=== PATIENT | male | born 1950 | race African-American/Black ===

== ENCOUNTER 2018-10-15 15:06 | Inpatient (IN) | payer OTHER ==
[2018-10-15 17:09] VITALS: BMI 21.8
--- NOTE | 2018-10-15 22:16 | HP ---
CIWA Score Nausea/Vomitin Muscle Tremors: None Anxiety: 0-No Anxiety, at Ease Agitation: 3 Paroxysmal Sweats: 3 Orientation: 1-Uncertain about Date Tacttile Disturbances: 0-None Auditory Disturbances: 0-None Visual Disturbances: 0-None Headache: 3-Moderate CIWA-Ar Total Score: 12 - Admission Criteria OASAS Guidelines: Admission for Medically Managed Detox: Requires at least one of the followin. CIWA greater than 12 2. Seizures within the past 24 hours 3. Delirium tremens within the past 24 hours 4. Hallucinations within the past 24 hours 5. Acute intervention needed for co occurring medical disorder 6. Acute intervention needed for co occurring psychiatric disorder 7. Severe withdrawal that cannot be handled at a lower level of care (continued vomiting, continued diarrhea, abnormal vital signs) requiring intravenous medication and/or fluids 8. Patient presents the following: CIWA greater than 12, Acute intervention needed for co-occurring med or psych disorder Admission Criteria Met: Admission criteria met Admission ROS S - [facility] Chief Complaint: c/o worsening withdrawal sx's. seeking detox txment from alcohol Allergies/Adverse Reactions: Allergies Allergy/AdvReac Type Severity Reaction Status Date / Time No Known Allergies Allergy Verified 10/15/18 18:22 History of Present Illness: 68 Y.O. MALE KNOWN TO US HERE FOR DETOX FROM ALCOHOL. HE PRESENTED EARLIER TODAY WITH INTOXICATION NOW C/O WORSENING WITHDRAWAL SX'S/ CIWA 12. REPEAT NADJA- .272 FROM 0.370. LAST HERE 04/2016. DENIES ANY INPATIENT TXMENT SINCE. POOR HISTORIAN ( DOES NOT WANT TO SHARE HX) HE STILL IS INTOXICATED BUT IS A/O X3 AND IRRITABLE. REPORTS LONGEST CLEAN TIME 2 YEARS FROM 1999 TO 2001. DENIES HX/ O SI/HI/ AVH/ SEIZURE D/O. LIVES ALONE, EMPLOYED, DENIES LEGALS. PMHX- DM, HTN, .... POOR HISTORIAN' i GOT ALL KIND OF SHIT" PSYCH- DENIES MEDS- NON COMPLAINT Exam Limitations: Intoxication - Ebola screening Have you traveled outside of the country in the last 21 days: No Have you had contact with anyone from an Ebola affected area: No Have you been sick,other than usual withdrawal symptoms: No - Review of Systems Constitutional: Loss of Appetite, Changes in sleep EENT: reports: Dental Problems (UPPER DENTURES) Respiratory: reports: Shortness of Breath Cardiac: reports: No Symptoms Reported GI: reports: Nausea, Poor Appetite, Poor Fluid Intake, Vomiting, Abdominal cramping : reports: No Symptoms Reported Musculoskeletal: reports: Back Pain Integumentary: reports: No Symptoms Reported Neuro: reports: No Symptoms reported Endocrine: reports: Other (HX/O DM) Hematology: reports: No Symptoms Reported Psychiatric: reports: Agitated (IRRITABLE), Depressed Other Systems: Reviewed and Negative Patient History - Patient Medical History Hx Anemia: No Hx Asthma: No Hx Chronic Obstructive Pulmonary Disease (COPD): No Hx Cancer: No Hx Cardiac Disorders: No Hx Congestive Heart Failure: No Hx Hypertension: Yes (NON COMPLIANT WITH MEDS.) Hx Hypercholesterolemia: No Hx Pacemaker: No HX Cerebrovascular Accident: No Hx Seizures: No Hx Dementia: No Hx Diabetes: Yes Hx Gastrointestinal Disorders: No Hx Liver Disease: Yes (HEP C) Hx Genitourinary Disorders: No Hx Sexually Transmitted Disorders: No Hx Renal Disease (ESRD): No Hx Thyroid Disease: No Hx Human Immunodeficiency Virus (HIV): No Hx Hepatitis C: Yes (DX 2010 NO TXMENT) Hx Depression: Yes Hx Suicide Attempt: No Hx Bipolar Disorder: No Hx Schizophrenia: No - Patient Surgical History Past Surgical History: Yes Hx Neurologic Surgery: No Hx Cataract Extraction: No Hx Cardiac Surgery: No Hx Lung Surgery: No Hx Breast Surgery: No Hx Breast Biopsy: No Hx Abdominal Surgery: No Hx Appendectomy: No Hx Cholecystectomy: No Hx Genitourinary Surgery: No Hx Section: No Hx Orthopedic Surgery: Yes (right ankle) Hx Hysterectomy: No (N/A) Anesthesia Reaction: No - PPD History Previous Implant?: Yes Documented Results: Negative w/proof Implanted On Prior [facility] Admission?: Yes Date: 11/21/15 Results: 0 MM PPD to be Administered?: Yes - Smoking Cessation Smoking history: Current every day smoker Have you smoked in the past 12 months: Yes Aproximately how many cigarettes per day: 10 Cigars Per Day: 0 Hx Chewing Tobacco Use: No Initiated information on smoking cessation: Yes 'Breaking Loose' booklet given: 10/15/18 - Substance & Tx. History Hx Alcohol Use: Yes Hx Substance Use: No Substance Use Type: Alcohol Hx Substance Use Treatment: Yes ([facility]) - Substances Abused Alcohol Route: Oral Frequency: Daily Amount used: liquor- 3 pints, beer- 1 case Age of first use: 16 Date of Last Use: 10/15/18 Family Disease History - Family Disease History Family Disease History: Respiratory: Sister (ASTHMA ), Other: Father ( ESTRANGED) Admission Physical Exam [facility] - Vital Signs Vital Signs: Vital Signs - 24 hr 10/15/18 17:04 Temperature 98.9 F Pulse Rate 80 Respiratory 18 Rate Blood Pressure 156/90 - Physical General Appearance: Yes: Appropriately Dressed, Intoxicated, Irritable HEENTM: Yes: EOMI, Normocephalic, Normal Voice, ISAIAS, Pharynx Normal, Other ( DENTURES TOP) Respiratory: Yes: Chest Non-Tender, Lungs Clear, Normal Breath Sounds, No Respiratory Distress, No Accessory Muscle Use Neck: Yes: No masses,lesions,Nodules, Supple, Trachea in good position Breast: Yes: Breast Exam Deferred Cardiology: Yes: Regular Rhythm, Regular Rate, S1, S2 Abdominal: Yes: Non Tender, Soft, Increased Bowel Sounds Genitourinary: Yes: Other (NO C/O OFFERED) Back: Yes: Normal Inspection Musculoskeletal: Yes: full range of Motion, Gait Steady Extremities: Yes: Normal Range of Motion, Non-Tender Neurological: Yes: Fully Oriented, Alert, Motor Strength 5/5 Integumentary: Yes: Dry, Warm Lymphatic: Yes: Within Normal Limits - Diagnostic (1) Diabetes Current Visit: Yes Status: Acute (2) History of hepatitis C Current Visit: Yes Status: Acute (3) Alcohol dependence with uncomplicated intoxication Current Visit: Yes Status: Acute (4) Non compliance w medication regimen Current Visit: Yes Status: Acute (5) Poor historian Current Visit: Yes Status: Acute (6) Gastroesophageal reflux disease Current Visit: No Status: Active (7) Drug-induced mood disorder Current Visit: No Status: Acute (8) Alcohol dependence with uncomplicated withdrawal Current Visit: No Status: Chronic (9) Essential hypertension Current Visit: No Status: Chronic (10) Nicotine dependence Current Visit: No Status: Chronic Qualifiers: Nicotine product type: cigarettes Substance use status: uncomplicated Qualified Code(s): F17.210 - Nicotine dependence, cigarettes, uncomplicated Cleared for Admission [facility] - Detox or Rehab [facility] Level of Care: Medically Managed Detox Regimen/Protocol: Librium Claeared for Rehab Admission: No S Breath Alcohol Content Breath Alcohol Content: 0.370 Urine Drug Screen - Results Drug Screen Negative: Yes
[2018-10-15] MEDS ORDERED: P-EPHED 60MG/TRIPROLIDI 2.5MG TABLET PO PRN (22:20)
[2018-10-15] MEDS ORDERED: ACETAMINOPHEN 325 MG TABLET (FP) PO PRN (22:20)
[2018-10-15] MEDS ORDERED: MAG HYDROX/AL HYDROX/SIMETH 30 ML UNIT-DOSE CUP PO PRN (22:20)
[2018-10-15] MEDS ORDERED: chlordiazePOXIDE HCL 25 MG CAPSULE PO PRN (22:20)
[2018-10-15] MEDS ORDERED: MAGNESIUM CITRATE 300 ML BOTTLE PO PRN (22:20)
[2018-10-15] MEDS ORDERED: guaiFENesin/D-METHORPHAN HB 10 ML UNIT-DOSE CUPS PO PRN (22:20)
[2018-10-15] MEDS ORDERED: MAGNESIUM HYDROX 2400MG/30ML ORAL SUSPENSION 30 ML CUP PO PRN (22:20)
[2018-10-15] MEDS ORDERED: NICOTINE POLACRILEX 2 MG GUM BC PRN (22:20)
[2018-10-15] MEDS ORDERED: LOPERAMIDE HCL 2 MG CAPSULE PO PRN (22:20)
[2018-10-15] MEDS ORDERED: hydrOXYzine PAMOATE 50 MG CAPSULE (FP) PO PRN (22:20)
[2018-10-15] MEDS ORDERED: IBUPROFEN 400 MG TABLET (FP) PO PRN (22:20)
[2018-10-15] MEDS ORDERED: MENTHOL/PHENOL 1 EACH UD MM PRN (22:20)
[2018-10-15] MEDS ORDERED: cloNIDine HCL 0.1 MG TABLET PO ONE (22:20)
[2018-10-15] MEDS: chlordiazePOXIDE HCL 25 MG CAPSULE PO SCH (23:13)
[2018-10-16] MEDS: chlordiazePOXIDE HCL 25 MG CAPSULE PO SCH ×4 (05:18→22:06)
[2018-10-16] MEDS: amLODIPine BESYLATE 5 MG TABLET (FP) PO SCH (10:13)
[2018-10-16] MEDS: PRENATAL VITAMINS W/ FOLIC ACID TABLET (FP) PO SCH (10:13)
[2018-10-16] MEDS: NICOTINE 14 MG/24 HOURS TOPICAL PATCH TD SCH (10:14)
[2018-10-16 10:21] LABS: HEMATOCRIT 42.6 % (35.4-49); HEMOGLOBIN 13.3 GM/dL (11.7-16.9); MCH 27.3 pg (25.7-33.7); MCHC 31.3 g/dl (32.0-35.9); MEAN CELL VOLUME 87.3 fl (80-96); PLATELET COUNT 146 K/MM3 (134-434); RBC 4.89 M/mm3 (4.00-5.60); RDW 16.3 % (11.9-15.9)
[2018-10-16 10:34] LABS: ALBUMIN 3.3 g/dl (3.4-5.0); ALK PHOS 54 U/L (45-117); ANION GAP 10 MMOL/L (8-16); BILIRUBIN,TOTAL 0.4 mg/dL (0.2-1); BLOOD UREA NITROGEN 11 mg/dL (7-18); CALCIUM 8.3 mg/dL (8.5-10.1); CHLORIDE 107 mmol/L (98-107); CO2 26 mmol/L (21-32); CREATININE 0.9 mg/dL (0.55-1.3); GLUCOSE,RANDOM 109 mg/dL (74-106); POTASSIUM 3.9 mmol/L (3.5-5.1); SGOT/AST 55 U/L (15-37); SGPT/ALT 43 U/L (13-61); SODIUM 143 mmol/L (136-145)
--- NOTE | 2018-10-16 13:15 | PN ---
S CIWA - CIWA Score Nausea/Vomitin-No Nausea/No Vomiting Muscle Tremors: 3 Anxiety: 4-Mod. Anxious/Guarded Agitation: 3 Paroxysmal Sweats: 2 Orientation: 0-Oriented Tacttile Disturbances: 0-None Auditory Disturbances: 0-None Visual Disturbances: 0-None Headache: 3-Moderate CIWA-Ar Total Score: 15 BHS Progress Note (SOAP) Subjective: PATIENT C/O FEELING TIRED, ANXIETY, RESTLESSNESS, SWEATING AND SHAKES. Objective: 10/16/18 13:13 Vital Signs Temperature 97.5 F L 10/16/18 09:26 Pulse Rate 72 10/16/18 11:00 Respiratory Rate 18 10/16/18 11:00 Blood Pressure 128/74 10/16/18 09:26 O2 Sat by Pulse Oximetry (%) Laboratory Tests 10/16/18 10/16/18 10/16/18 06:11 07:00 07:00 WBC 5.0 RBC 4.89 Hgb 13.3 Hct 42.6 MCV 87.3 MCH 27.3 MCHC 31.3 L RDW 16.3 H Plt Count 146 D MPV 9.0 Sodium 143 Potassium 3.9 Chloride 107 Carbon Dioxide 26 Anion Gap 10 BUN 11 Creatinine 0.9 Creat Clearance w eGFR > 60 POC Glucometer 132 Random Glucose 109 H Calcium 8.3 L Total Bilirubin 0.4 AST 55 H ALT 43 Alkaline Phosphatase 54 Total Protein 7.0 Albumin 3.3 L RPR Titer 10/16/18 07:00 WBC RBC Hgb Hct MCV MCH MCHC RDW Plt Count MPV Sodium Potassium Chloride Carbon Dioxide Anion Gap BUN Creatinine Creat Clearance w eGFR POC Glucometer Random Glucose Calcium Total Bilirubin AST ALT Alkaline Phosphatase Total Protein Albumin RPR Titer Nonreactive PE: ALERT AND ORIENTED X 3 SKIN WARM, MILD MOISTURE TO FOREHEAD CAR S1S2 RESP CTA BL EXT AMB AD MILLI, +MILD TREMORS +IRRITABLE Assessment: 10/16/18 13:14 WITHDRAWAL SX Plan: CONTINUE DETOX ENCOURAGE ORAL FLUIDS CONTINUE TO MONITOR CLINICALLY
[2018-10-16 15:36] LABS: URINE APPEARANCE CLEAR; URINE BILIRUBIN NEGATIVE (<2.0 mg/dL); URINE COLOR STRAW; URINE GLUCOSE (UA) NEGATIVE (NEGATIVE); URINE KETONE NEGATIVE (NEGATIVE); URINE LEUK ESTERASE NEGATIVE (NEGATIVE); URINE NITRITE NEGATIVE (NEGATIVE); URINE PROTEIN NEGATIVE (NEGATIVE); URINE UROBILINOGEN NEGATIVE mg/dL (0.2-1.0)
[2018-10-16] MEDS: THIAMINE HCL 100 MG TABLET (FP) PO SCH (22:06)
[2018-10-16] MEDS: MELATONIN 5 MG TABLETS PO PRN (22:06)
[2018-10-17] MEDS: chlordiazePOXIDE HCL 25 MG CAPSULE PO SCH ×3 (05:10→17:16)
[2018-10-17] MEDS: PRENATAL VITAMINS W/ FOLIC ACID TABLET (FP) PO SCH (10:05)
[2018-10-17] MEDS: amLODIPine BESYLATE 5 MG TABLET (FP) PO SCH (10:05)
[2018-10-17] MEDS: NICOTINE 14 MG/24 HOURS TOPICAL PATCH TD SCH (10:07)
--- NOTE | 2018-10-17 11:47 | PN ---
[facility] CIWA - CIWA Score Nausea/Vomitin-Mild Nausea/No Vomiting Muscle Tremors: 3 Anxiety: 1-Mildly Anxious Agitation: 2 Paroxysmal Sweats: 1-Minimal Palms Moist Orientation: 1-Uncertain about Date Tacttile Disturbances: 0-None Auditory Disturbances: 0-None Visual Disturbances: 0-None Headache: 2-Mild CIWA-Ar Total Score: 11 S Progress Note (SOAP) Subjective: gi distress tremor sweat restlessness anxiousness Objective: 10/17/18 11:47 Vital Signs Temperature 97 F L 10/17/18 09:06 Pulse Rate 63 10/17/18 09:06 Respiratory Rate 20 10/17/18 09:06 Blood Pressure 137/77 10/17/18 09:06 O2 Sat by Pulse Oximetry (%) Laboratory Last Values WBC 5.0 K/mm3 (4.0-10.0) 10/16/18 07:00 RBC 4.89 M/mm3 (4.00-5.60) 10/16/18 07:00 Hgb 13.3 GM/dL (11.7-16.9) 10/16/18 07:00 Hct 42.6 % (35.4-49) 10/16/18 07:00 MCV 87.3 fl (80-96) 10/16/18 07:00 MCH 27.3 pg (25.7-33.7) 10/16/18 07:00 MCHC 31.3 g/dl (32.0-35.9) L 10/16/18 07:00 RDW 16.3 % (11.9-15.9) H 10/16/18 07:00 Plt Count 146 K/MM3 (134-434) D 10/16/18 07:00 MPV 9.0 fl (7.5-11.1) 10/16/18 07:00 Sodium 143 mmol/L (136-145) 10/16/18 07:00 Potassium 3.9 mmol/L (3.5-5.1) 10/16/18 07:00 Chloride 107 mmol/L (98-107) 10/16/18 07:00 Carbon Dioxide 26 mmol/L (21-32) 10/16/18 07:00 Anion Gap 10 MMOL/L (8-16) 10/16/18 07:00 BUN 11 mg/dL (7-18) 10/16/18 07:00 Creatinine 0.9 mg/dL (0.55-1.3) 10/16/18 07:00 Creat Clearance w eGFR > 60 (>60) 10/16/18 07:00 POC Glucometer 115 UNITS (80-120) 10/17/18 05:09 Random Glucose 109 mg/dL (74-106) H 10/16/18 07:00 Calcium 8.3 mg/dL (8.5-10.1) L 10/16/18 07:00 Total Bilirubin 0.4 mg/dL (0.2-1) 10/16/18 07:00 AST 55 U/L (15-37) H 10/16/18 07:00 ALT 43 U/L (13-61) 10/16/18 07:00 Alkaline Phosphatase 54 U/L (45-117) 10/16/18 07:00 Total Protein 7.0 g/dl (6.4-8.2) 10/16/18 07:00 Albumin 3.3 g/dl (3.4-5.0) L 10/16/18 07:00 Urine Color Straw 10/15/18 11:45 Urine Appearance Clear 10/15/18 11:45 Urine pH 6.0 (5.0-8.0) 10/15/18 11:45 Ur Specific [place] 1.003 (1.010-1.035) L 10/15/18 11:45 Urine Protein Negative (NEGATIVE) 10/15/18 11:45 Urine Glucose (UA) Negative (NEGATIVE) 10/15/18 11:45 Urine Ketones Negative (NEGATIVE) 10/15/18 11:45 Urine Blood Negative (NEGATIVE) 10/15/18 11:45 Urine Nitrite Negative (NEGATIVE) 10/15/18 11:45 Urine Bilirubin Negative (<2.0 mg/dL) 10/15/18 11:45 Urine Urobilinogen Negative mg/dL (0.2-1.0) 10/15/18 11:45 Ur Leukocyte Esterase Negative (NEGATIVE) 10/15/18 11:45 RPR Titer Nonreactive (NONREACTIVE) 10/16/18 07:00 lab noted Assessment: 10/17/18 11:48 withdrawal sx Plan: continue detox
[2018-10-17] MEDS: THIAMINE HCL 100 MG TABLET (FP) PO SCH (22:09)
[2018-10-17] MEDS: chlordiazePOXIDE 5 MG CAPSULE PO SCH (22:09)
[2018-10-17] MEDS: MELATONIN 5 MG TABLETS PO PRN (22:09)
[2018-10-18] MEDS: chlordiazePOXIDE 5 MG CAPSULE PO SCH ×2 (05:31→10:10)
[2018-10-18] MEDS: PRENATAL VITAMINS W/ FOLIC ACID TABLET (FP) PO SCH (10:10)
[2018-10-18] MEDS: amLODIPine BESYLATE 5 MG TABLET (FP) PO SCH (10:10)
[2018-10-18] MEDS: NICOTINE 14 MG/24 HOURS TOPICAL PATCH TD SCH (10:11)
[2018-10-18 13:08] VITALS: BP 115/62; PULSE 65; TEMP 97.9
--- NOTE | 2018-10-18 16:06 | DS ---
[facility] Detox Discharge Summary Admission Date: 10/15/18 Discharge Date: 10/18/18 - History Present History: Alcohol Dependence Additional Comments: 68 years old male admitted on 10/15/18 for alcohol withdrawal stabilization preferred to begin rehab today that mild alcohol withdrawal can be managed encourage the patient aftercare as per counselor arranged - Physical Exam Results Vital Signs: Vital Signs Temperature 97.9 F 10/18/18 13:08 Pulse Rate 65 10/18/18 13:08 Respiratory Rate 17 10/18/18 13:08 Blood Pressure 115/62 10/18/18 13:08 O2 Sat by Pulse Oximetry (%) Pertinent Admission Physical Exam Findings: alcohol withdrawal sx Laboratory Last Values WBC 5.0 K/mm3 (4.0-10.0) 10/16/18 07:00 RBC 4.89 M/mm3 (4.00-5.60) 10/16/18 07:00 Hgb 13.3 GM/dL (11.7-16.9) 10/16/18 07:00 Hct 42.6 % (35.4-49) 10/16/18 07:00 MCV 87.3 fl (80-96) 10/16/18 07:00 MCH 27.3 pg (25.7-33.7) 10/16/18 07:00 MCHC 31.3 g/dl (32.0-35.9) L 10/16/18 07:00 RDW 16.3 % (11.9-15.9) H 10/16/18 07:00 Plt Count 146 K/MM3 (134-434) D 10/16/18 07:00 MPV 9.0 fl (7.5-11.1) 10/16/18 07:00 Sodium 143 mmol/L (136-145) 10/16/18 07:00 Potassium 3.9 mmol/L (3.5-5.1) 10/16/18 07:00 Chloride 107 mmol/L (98-107) 10/16/18 07:00 Carbon Dioxide 26 mmol/L (21-32) 10/16/18 07:00 Anion Gap 10 MMOL/L (8-16) 10/16/18 07:00 BUN 11 mg/dL (7-18) 10/16/18 07:00 Creatinine 0.9 mg/dL (0.55-1.3) 10/16/18 07:00 Creat Clearance w eGFR > 60 (>60) 10/16/18 07:00 POC Glucometer 129 UNITS (80-120) 10/18/18 05:35 Random Glucose 109 mg/dL (74-106) H 10/16/18 07:00 Calcium 8.3 mg/dL (8.5-10.1) L 10/16/18 07:00 Total Bilirubin 0.4 mg/dL (0.2-1) 10/16/18 07:00 AST 55 U/L (15-37) H 10/16/18 07:00 ALT 43 U/L (13-61) 10/16/18 07:00 Alkaline Phosphatase 54 U/L (45-117) 10/16/18 07:00 Total Protein 7.0 g/dl (6.4-8.2) 10/16/18 07:00 Albumin 3.3 g/dl (3.4-5.0) L 10/16/18 07:00 Urine Color Straw 10/15/18 11:45 Urine Appearance Clear 10/15/18 11:45 Urine pH 6.0 (5.0-8.0) 10/15/18 11:45 Ur Specific [place] 1.003 (1.010-1.035) L 10/15/18 11:45 Urine Protein Negative (NEGATIVE) 10/15/18 11:45 Urine Glucose (UA) Negative (NEGATIVE) 10/15/18 11:45 Urine Ketones Negative (NEGATIVE) 10/15/18 11:45 Urine Blood Negative (NEGATIVE) 10/15/18 11:45 Urine Nitrite Negative (NEGATIVE) 10/15/18 11:45 Urine Bilirubin Negative (<2.0 mg/dL) 10/15/18 11:45 Urine Urobilinogen Negative mg/dL (0.2-1.0) 10/15/18 11:45 Ur Leukocyte Esterase Negative (NEGATIVE) 10/15/18 11:45 RPR Titer Nonreactive (NONREACTIVE) 10/16/18 07:00 lab noted - Treatment Hospital Course: Detox Protocol Followed, Detoxed Safely, Responded well, Discharged Condition Good, Rehab Referral Accepted Patient has Accepted a Rehab Referral to: as per counselor arrangement - Medication Discharge Medications: Ambulatory Orders Amlodipine Besylate [Norvasc -] 5 mg PO DAILY #30 tablet 02/15/16 - Diagnosis (1) Weight decreased Status: Active (2) Alcohol dependence with uncomplicated intoxication Status: Acute (3) History of hepatitis C Status: Chronic (4) Essential hypertension Status: Chronic (5) Nicotine dependence Status: Acute Qualifiers: Nicotine product type: cigarettes Substance use status: in withdrawal Qualified Code(s): F17.213 - Nicotine dependence, cigarettes, with withdrawal (6) Drug-induced mood disorder Status: Suspected - AMA Did Patient Leave Against Medical Advice: No
[2018-10-18] MEDS ORDERED: chlordiazePOXIDE HCL 10 MG CAPSULE PO SCH (23:00)
== END 2018-10-18 14:25 | disposition home or self-care (01) | DRG 897 ==
LOC: YASAS 15:06 → Y3N 20:58
PROC: HZ2ZZZZ Detoxification Services for Substance Abuse Treatment (ICD-10-PCS; principal; 2018-10-15)
DX: F10.230 Alcohol dependence with withdrawal, uncomplicated (principal); F10.220 Alcohol dependence with intoxication, uncomplicated; F17.213 Nicotine dependence, cigarettes, with withdrawal; F19.24 Other psychoactive substance dependence with psychoactive substance-induced mood disorder; I10 Essential (primary) hypertension; B18.2 Chronic viral hepatitis C; E11.9 Type 2 diabetes mellitus without complications; K21.9 Gastro-esophageal reflux disease without esophagitis; Z91.14 Patient's other noncompliance with medication regimen
CPT/HCPCS: 36415; 80053; 81003; 82962; 85027; 86593; J0735

== ENCOUNTER 2019-05-16 10:58 | Inpatient (IN) | payer OTHER ==
[2019-05-16 11:43] VITALS: BMI 19.5
--- NOTE | 2019-05-16 12:34 | HP ---
CIWA Score Nausea/Vomitin-No Nausea/No Vomiting Muscle Tremors: 4-Moderate,w/Arms Extend Anxiety: 2 Agitation: 1-Slight > Activity Paroxysmal Sweats: 4-Forehead w/Sweat Beads Orientation: 2-Disoriented Date<2 days Tacttile Disturbances: 1-Very Mild Itch/Numbness Auditory Disturbances: 0-None Visual Disturbances: 0-None Headache: 4-Moderately Severe (appropriate for detox admission) CIWA-Ar Total Score: 18 - Admission Criteria OASAS Guidelines: Admission for Medically Managed Detox: Requires at least one of the followin. CIWA greater than 12 2. Seizures within the past 24 hours 3. Delirium tremens within the past 24 hours 4. Hallucinations within the past 24 hours 5. Acute intervention needed for co occurring medical disorder 6. Acute intervention needed for co occurring psychiatric disorder 7. Severe withdrawal that cannot be handled at a lower level of care (continued vomiting, continued diarrhea, abnormal vital signs) requiring intravenous medication and/or fluids 8. Admission ROS [facility] - HPI Chief Complaint: "I'm here for alcohol treatment." Allergies/Adverse Reactions: Allergies Allergy/AdvReac Type Severity Reaction Status Date / Time No Known Allergies Allergy Verified 05/16/19 11:33 History of Present Illness: Patient is 68 year old black male with alcohol dependence last admitted to [facility] 6 months ago. Patient completed detox. Patient is using 10 beers 16 oz cans per day, last drank 1 day ago because he ran out of money. Patient has had black outs from over drinking. Patient denies seizures. Patient sometimes infrequently uses crack/cocaine. Patient sometimes uses benzodiazepines but infrequently. Patient smokes 3/4 pack of cigg per day. PMHx: HTN, DM, HCV Disease untreated Psurgical Hx; Broken left ankle long ago. Patient has no legal issues pending. Patient was arrested in past for being drunk. Patient has no support systems from family. Patient is homeless now, but not in [facility] system. Exam Limitations: No Limitations - Ebola screening Have you traveled outside of the country in the last 21 days: No Have you had contact with anyone from an Ebola affected area: No Have you been sick,other than usual withdrawal symptoms: No Do you have a fever: No - Review of Systems Constitutional: Chills EENT: reports: No Symptoms Reported Respiratory: reports: No Symptoms reported, Cough Cardiac: reports: Lightheadedness GI: reports: Nausea, Abdominal cramping : reports: No Symptoms Reported Musculoskeletal: reports: Muscle Pain Integumentary: reports: No Symptoms Reported Neuro: reports: Headache, Tingling, Tremors Endocrine: reports: No Symptoms Reported Hematology: reports: No Symptoms Reported Psychiatric: reports: No Sypmtoms Reported, Judgement Intact, Mood/Affect Appropiate, Orientated x3 Other Systems: Reviewed and Negative Patient History - Patient Medical History Hx Anemia: No Hx Asthma: No Hx Chronic Obstructive Pulmonary Disease (COPD): No Hx Cancer: No Hx Cardiac Disorders: No Hx Congestive Heart Failure: No Hx Hypertension: Yes (NON COMPLIANT WITH MEDS.) Hx Hypercholesterolemia: No Hx Pacemaker: No HX Cerebrovascular Accident: No Hx Seizures: No Hx Dementia: No Hx Diabetes: Yes (no medications) Hx Gastrointestinal Disorders: No Hx Liver Disease: Yes (HEP C) Hx Genitourinary Disorders: No Hx Sexually Transmitted Disorders: No Hx Renal Disease (ESRD): No Hx Thyroid Disease: No Hx Human Immunodeficiency Virus (HIV): No Hx Hepatitis C: Yes (DX 2010 NO TXMENT) Hx Depression: No Hx Suicide Attempt: No Hx Bipolar Disorder: No Hx Schizophrenia: No - Patient Surgical History Past Surgical History: Yes Hx Neurologic Surgery: No Hx Cataract Extraction: No Hx Cardiac Surgery: No Hx Lung Surgery: No Hx Breast Surgery: No Hx Breast Biopsy: No Hx Abdominal Surgery: No Hx Appendectomy: No Hx Cholecystectomy: No Hx Genitourinary Surgery: No Hx Section: No Hx Orthopedic Surgery: Yes (right ankle) Hx Hysterectomy: No (N/A) Anesthesia Reaction: No - PPD History Previous Implant?: Yes Documented Results: Negative w/o proof Implanted On Prior [facility] Admission?: Yes Date: 10/17/18 Results: 0 MM PPD to be Administered?: Yes - Reproductive History Patient is a Female of Child Bearing Age (11 -55 yrs old): No - Smoking Cessation Smoking history: Current every day smoker Have you smoked in the past 12 months: Yes Aproximately how many cigarettes per day: 10 Cigars Per Day: 0 Hx Chewing Tobacco Use: No Initiated information on smoking cessation: Yes 'Breaking Loose' booklet given: 05/16/19 - Substance & Tx. History Hx Alcohol Use: Yes (10 beers per day) Hx Substance Use: Yes (occasional cocaine and benzodiazepines) Substance Use Type: Alcohol, Cocaine Hx Substance Use Treatment: Yes (10/2018 detox here) - Substances abused Alcohol Substance route: Oral Frequency: Daily Amount used: 12 beers 16oz can Age of first use: 15 Date of last use: 05/15/19 Family Disease History - Family Disease History Family Disease History: Respiratory: Sister (ASTHMA ), Other: Father ( ESTRANGED) Admission Physical Exam [facility] - Vital Signs Vital Signs: Vital Signs - 24 hr 05/16/19 11:33 Temperature 98.1 F Pulse Rate 102 H Respiratory 18 Rate Blood Pressure 191/111 H - Physical General Appearance: Yes: Moderate Distress, Sweating HEENTM: Yes: EOMI, Normal ENT Inspection, Normocephalic, ISAIAS, Pharynx Normal, Other (edentulous) Respiratory: Yes: Chest Non-Tender, Lungs Clear, Normal Breath Sounds, No Respiratory Distress, No Accessory Muscle Use Neck: Yes: Within Normal Limits, No masses,lesions,Nodules, Trachea in good position Breast: Yes: Within Normal Limits Cardiology: Yes: S1, S2, Tachycardia, Irregularly Irregular Abdominal: Yes: Normal Bowel Sounds, Flat, Increased Bowel Sounds Genitourinary: Yes: Within Normal Limits Back: Yes: Normal Inspection Musculoskeletal: Yes: full range of Motion, Gait Steady Extremities: Yes: Normal Capillary Refill, Normal Inspection, Normal Range of Motion, Non-Tender Neurological: Yes: community engagement leader II-XII NML intact, Fully Oriented, Alert, Motor Strength 5/5, Normal Mood/Affect, Normal Response Integumentary: Yes: Normal Color, Warm Lymphatic: Yes: Within Normal Limits - Diagnostic (1) Gastroesophageal reflux disease Current Visit: Yes Status: Active (2) Weight decreased Current Visit: Yes Status: Active (3) Diabetes Current Visit: Yes Status: Acute (4) Nicotine dependence Current Visit: Yes Status: Acute Qualifiers: Nicotine product type: cigarettes Substance use status: in withdrawal Qualified Code(s): F17.213 - Nicotine dependence, cigarettes, with withdrawal (5) Alcohol dependence with uncomplicated withdrawal Current Visit: Yes Status: Chronic (6) Essential hypertension Current Visit: Yes Status: Chronic (7) History of hepatitis C Current Visit: Yes Status: Chronic Cleared for Admission [facility] - Detox or Rehab [facility] Level of Care: Medically Managed Detox Regimen/Protocol: Librium Screened but not Admitted - Documentation of Visit Screened but not Admitted: No Breathalyzer - Breathalyzer Breathalyzer: 0 (last drank one day ago because no money) Vital Signs - Vital Signs Vital signs refused: No Temperature: 98.1 F Temperature source: Oral Pulse Rate: 102 Respiratory Rate: 18 Blood Pressure: 190/111 BP Location: Left Arm Blood Pressure position: Sitting - Height Height: 6 ft 2 in - Weight Weight: 152 lb Weight measurement method: Standing scale - BMI Body Mass Index (BMI): 19.5 - Bowel Function Bowel Movement: Yes Urine Drug Screen - Control Is test valid?: Yes - Results Drug screen NEGATIVE: No Urine drug screen results: BZO-Benzodiazepines Inpatient Rehab Admission - Rehab Decision to Admit Inpatient rehab admission?: No
[2019-05-16] MEDS ORDERED: chlordiazePOXIDE HCL 25 MG CAPSULE PO PRN (12:47)
[2019-05-16] MEDS ORDERED: MENTHOL/PHENOL 1 EACH UD MM PRN (12:47)
[2019-05-16] MEDS ORDERED: hydrOXYzine HCL 25 MG TABLET (FP) PO PRN (12:47)
[2019-05-16] MEDS ORDERED: ACETAMINOPHEN 325 MG TABLET (FP) PO PRN ×2 (12:47)
[2019-05-16] MEDS ORDERED: MAGNESIUM CITRATE 300 ML BOTTLE PO PRN (12:47)
[2019-05-16] MEDS ORDERED: MAGNESIUM HYDROX 2400MG/30ML ORAL SUSPENSION 30 ML CUP PO PRN (12:47)
[2019-05-16] MEDS ORDERED: MAG HYDROX/AL HYDROX/SIMETH 30 ML UNIT-DOSE CUP PO PRN (12:47)
[2019-05-16] MEDS ORDERED: METHOCARBAMOL 500 MG TABLET PO PRN (12:47)
[2019-05-16] MEDS ORDERED: BISMUTH SUBSALICYLATE 262 MG/15 ML BTL PO PRN (12:47)
[2019-05-16] MEDS: amLODIPine BESYLATE 5 MG TABLET (FP) PO SCH (15:14)
[2019-05-16] MEDS: LIDOCAINE 5% TOPICAL PATCH TP SCH (15:17)
[2019-05-16 16:44] LABS: HEMATOCRIT 44.3 % (35.4-49); HEMOGLOBIN 14.3 GM/dL (11.7-16.9); MCH 28.1 pg (25.7-33.7); MCHC 32.3 g/dl (32.0-35.9); MEAN PLT VOLUME 9.7 fl (7.5-11.1); PLATELET COUNT 122 K/MM3 (134-434); RBC 5.09 M/mm3 (4.00-5.60); RDW 15.7 % (11.9-15.9); WHITE BLOOD COUNT 6.3 K/mm3 (4.0-10.0)
[2019-05-16 16:56] LABS: ALBUMIN 3.8 g/dl (3.4-5.0); BILIRUBIN,TOTAL 0.8 mg/dL (0.2-1); BLOOD UREA NITROGEN 12.9 mg/dL (7-18); CALCIUM 9.3 mg/dL (8.5-10.1); CREATININE 1.2 mg/dL (0.55-1.3); POTASSIUM 4.7 mmol/L (3.5-5.1); TOT PROT 8.2 g/dl (6.4-8.2)
[2019-05-16] MEDS: ATORVASTATIN CA 20 MG TABLET (FP) PO SCH (22:41)
[2019-05-16] MEDS: chlordiazePOXIDE HCL 25 MG CAPSULE PO SCH (22:41)
[2019-05-16] MEDS: THIAMINE HCL 100 MG TABLET (FP) PO SCH (22:41)
[2019-05-16] MEDS: MELATONIN 5 MG TABLETS PO PRN (22:42)
[2019-05-17] MEDS: chlordiazePOXIDE HCL 25 MG CAPSULE PO SCH ×4 (06:02→22:51)
--- NOTE | 2019-05-17 09:33 | PN ---
S CIWA - CIWA Score Nausea/Vomitin-Mild Nausea/No Vomiting Muscle Tremors: 3 Anxiety: 1-Mildly Anxious Agitation: 1-Slight > Activity Paroxysmal Sweats: No Perspiration Orientation: 0-Oriented Tacttile Disturbances: 0-None Auditory Disturbances: 0-None Visual Disturbances: 0-None Headache: 3-Moderate (first full day of detox today) CIWA-Ar Total Score: 9 S Progress Note (SOAP) Subjective: Patient still in withdrawals from alcohol. Feeling some headaches, weakness, tremors, but did sleep well last night. Patient seen in bed. Objective: 05/17/19 09:32 Vitals: BP: 163/89 P:79/min R:18/min T: 96.4F Laboratory 05/16/19 05/16/19 05/16/19 13:07 13:25 13:25 WBC 6.3 K/mm3 K/mm3 (4.0-10.0) RBC 5.09 M/mm3 M/mm3 (4.00-5.60) Hgb 14.3 GM/dL GM/dL (11.7-16.9) Hct 44.3 % % (35.4-49) MCV 87.0 fl fl (80-96) MCH 28.1 pg pg (25.7-33.7) MCHC 32.3 g/dl g/dl (32.0-35.9) RDW 15.7 % % (11.9-15.9) Plt Count 122 K/MM3 L K/MM3 (134-434) MPV 9.7 fl fl (7.5-11.1) Sodium 139 mmol/L mmol/L (136-145) Potassium 4.7 mmol/L mmol/L (3.5-5.1) Chloride 99 mmol/L mmol/L (98-107) Carbon Dioxide 32 mmol/L mmol/L (21-32) Anion Gap 9 MMOL/L MMOL/L (8-16) BUN 12.9 mg/dL mg/dL (7-18) Creatinine 1.2 mg/dL mg/dL (0.55-1.3) Est GFR (CKD-EPI)AfAm 71.08 Est GFR (CKD-EPI)NonAf 61.33 POC Glucometer 158 UNITS UNITS (80-120) Random Glucose 175 mg/dL H mg/dL (74-106) Calcium 9.3 mg/dL mg/dL (8.5-10.1) Total Bilirubin 0.8 mg/dL mg/dL (0.2-1) AST 80 U/L H U/L (15-37) ALT 41 U/L U/L (13-61) Alkaline Phosphatase 69 U/L U/L (45-117) Total Protein 8.2 g/dl g/dl (6.4-8.2) Albumin 3.8 g/dl g/dl (3.4-5.0) RPR Titer 05/16/19 05/16/19 05/17/19 13:25 16:33 06:09 WBC RBC Hgb Hct MCV MCH MCHC RDW Plt Count MPV Sodium Potassium Chloride Carbon Dioxide Anion Gap BUN Creatinine Est GFR (CKD-EPI)AfAm Est GFR (CKD-EPI)NonAf POC Glucometer 130 UNITS UNITS 96 UNITS UNITS (80-120) (80-120) Random Glucose Calcium Total Bilirubin AST ALT Alkaline Phosphatase Total Protein Albumin RPR Titer Nonreactive (NONREACTIVE) 05/17/19 09:33 Assessment: 05/17/19 09:34 1. Diabetes 2. HTN 3. Dehydration Plan: 1. DM: Change diet to diabetic and salt restricted diet. 2. HTN: Continue salt restricted diet. Review meds if not under control by tomorrow. 3. Dehydration: Encourage more PO fluids. Dr. Briseno
[2019-05-17] MEDS: amLODIPine BESYLATE 5 MG TABLET (FP) PO SCH (10:22)
[2019-05-17] MEDS: PRENATAL VITAMINS W/ FOLIC ACID TABLET (FP) PO SCH (10:22)
[2019-05-17] MEDS: LIDOCAINE 5% TOPICAL PATCH TP SCH (10:36)
--- NOTE | 2019-05-17 13:48 | EKG ---
Test Reason : Blood Pressure : / mmHG Vent. Rate : 074 BPM Atrial Rate : 074 BPM P-R Int : 140 ms QRS Dur : 086 ms QT Int : 406 ms P-R-T Axes : 072 071 075 degrees QTc Int : 450 ms NORMAL SINUS RHYTHM NORMAL ECG NO PREVIOUS ECGS AVAILABLE Confirmed by DMITRY MEJIA MD ([id number]) on 05/17/2019 1:47:56 PM Referred By: Confirmed By:DMITRY MEJIA MD
[2019-05-17] MEDS: ATORVASTATIN CA 20 MG TABLET (FP) PO SCH (22:51)
[2019-05-17] MEDS: THIAMINE HCL 100 MG TABLET (FP) PO SCH (22:51)
[2019-05-18] MEDS: chlordiazePOXIDE HCL 25 MG CAPSULE PO SCH ×4 (05:50→23:22)
[2019-05-18] MEDS: PRENATAL VITAMINS W/ FOLIC ACID TABLET (FP) PO SCH (10:48)
[2019-05-18] MEDS: amLODIPine BESYLATE 5 MG TABLET (FP) PO SCH (10:48)
--- NOTE | 2019-05-18 12:02 | PN ---
S CIWA - CIWA Score Nausea/Vomitin-No Nausea/No Vomiting Muscle Tremors: 2 Anxiety: 2 Agitation: 2 Paroxysmal Sweats: 2 Orientation: 0-Oriented Tacttile Disturbances: 0-None Auditory Disturbances: 0-None Visual Disturbances: 0-None Headache: 0-None Present CIWA-Ar Total Score: 8 BHS Progress Note (SOAP) Subjective: sweats mild shakes interrupted sleep Objective: 05/18/19 12:02 Vital Signs Temperature 97.6 F 05/18/19 09:24 Pulse Rate 50 L 05/18/19 09:24 Respiratory Rate 18 05/18/19 09:24 Blood Pressure 149/90 05/18/19 09:24 O2 Sat by Pulse Oximetry (%) Laboratory Tests 05/16/19 05/16/19 05/16/19 13:07 13:25 13:25 WBC 6.3 RBC 5.09 Hgb 14.3 Hct 44.3 MCV 87.0 MCH 28.1 MCHC 32.3 RDW 15.7 Plt Count 122 L MPV 9.7 Sodium 139 Potassium 4.7 Chloride 99 Carbon Dioxide 32 Anion Gap 9 BUN 12.9 Creatinine 1.2 Est GFR (CKD-EPI)AfAm 71.08 Est GFR (CKD-EPI)NonAf 61.33 POC Glucometer 158 Random Glucose 175 H Calcium 9.3 Total Bilirubin 0.8 AST 80 H ALT 41 Alkaline Phosphatase 69 Total Protein 8.2 Albumin 3.8 RPR Titer 05/16/19 05/16/19 05/17/19 13:25 16:33 06:09 WBC RBC Hgb Hct MCV MCH MCHC RDW Plt Count MPV Sodium Potassium Chloride Carbon Dioxide Anion Gap BUN Creatinine Est GFR (CKD-EPI)AfAm Est GFR (CKD-EPI)NonAf POC Glucometer 130 96 Random Glucose Calcium Total Bilirubin AST ALT Alkaline Phosphatase Total Protein Albumin RPR Titer Nonreactive 05/18/19 05:51 WBC RBC Hgb Hct MCV MCH MCHC RDW Plt Count MPV Sodium Potassium Chloride Carbon Dioxide Anion Gap BUN Creatinine Est GFR (CKD-EPI)AfAm Est GFR (CKD-EPI)NonAf POC Glucometer 108 Random Glucose Calcium Total Bilirubin AST ALT Alkaline Phosphatase Total Protein Albumin RPR Titer labs noted aaox3 ambulating no acute distress Assessment: 05/18/19 12:02 withdrawal sx Plan: continue detox increase fluids
[2019-05-18] MEDS: THIAMINE HCL 100 MG TABLET (FP) PO SCH (23:22)
[2019-05-18] MEDS: ATORVASTATIN CA 20 MG TABLET (FP) PO SCH (23:22)
[2019-05-18] MEDS: MELATONIN 5 MG TABLETS PO PRN (23:24)
[2019-05-19] MEDS ORDERED: chlordiazePOXIDE HCL 10 MG CAPSULE PO PRN
[2019-05-19] MEDS: chlordiazePOXIDE HCL 10 MG CAPSULE PO SCH ×4 (05:54→23:17)
[2019-05-19] MEDS: PRENATAL VITAMINS W/ FOLIC ACID TABLET (FP) PO SCH (10:38)
[2019-05-19] MEDS: amLODIPine BESYLATE 5 MG TABLET (FP) PO SCH (10:39)
[2019-05-19] MEDS: LIDOCAINE 5% TOPICAL PATCH TP SCH ×2 (10:39→11:00)
--- NOTE | 2019-05-19 13:59 | PN ---
[facility] CIWA - CIWA Score Nausea/Vomitin-Mild Nausea/No Vomiting Muscle Tremors: 2 Anxiety: 3 Agitation: 3 Paroxysmal Sweats: 3 Orientation: 0-Oriented Tacttile Disturbances: 0-None Auditory Disturbances: 0-None Visual Disturbances: 0-None Headache: 0-None Present CIWA-Ar Total Score: 12 S Progress Note (SOAP) Subjective: Tremor, anxious, interrupted sleep Objective: 05/19/19 13:56 Last Vital Signs Temp Pulse Resp BP Pulse Ox 97.0 F L 51 L 18 153/91 05/19/19 10:00 05/19/19 10:00 05/19/19 10:00 05/19/19 10:00 Elevated b/p (has htn, on med) Laboratory Tests 05/16/19 05/16/19 05/16/19 13:07 13:25 13:25 WBC 6.3 RBC 5.09 Hgb 14.3 Hct 44.3 MCV 87.0 MCH 28.1 MCHC 32.3 RDW 15.7 Plt Count 122 L MPV 9.7 Sodium 139 Potassium 4.7 Chloride 99 Carbon Dioxide 32 Anion Gap 9 BUN 12.9 Creatinine 1.2 Est GFR (CKD-EPI)AfAm 71.08 Est GFR (CKD-EPI)NonAf 61.33 POC Glucometer 158 Random Glucose 175 H Calcium 9.3 Total Bilirubin 0.8 AST 80 H ALT 41 Alkaline Phosphatase 69 Total Protein 8.2 Albumin 3.8 RPR Titer 05/16/19 05/16/19 05/17/19 13:25 16:33 06:09 WBC RBC Hgb Hct MCV MCH MCHC RDW Plt Count MPV Sodium Potassium Chloride Carbon Dioxide Anion Gap BUN Creatinine Est GFR (CKD-EPI)AfAm Est GFR (CKD-EPI)NonAf POC Glucometer 130 96 Random Glucose Calcium Total Bilirubin AST ALT Alkaline Phosphatase Total Protein Albumin RPR Titer Nonreactive 05/18/19 05/18/19 05/18/19 05:51 17:02 22:10 WBC RBC Hgb Hct MCV MCH MCHC RDW Plt Count MPV Sodium Potassium Chloride Carbon Dioxide Anion Gap BUN Creatinine Est GFR (CKD-EPI)AfAm Est GFR (CKD-EPI)NonAf POC Glucometer 108 135 163 Random Glucose Calcium Total Bilirubin AST ALT Alkaline Phosphatase Total Protein Albumin RPR Titer 05/19/19 05:55 WBC RBC Hgb Hct MCV MCH MCHC RDW Plt Count MPV Sodium Potassium Chloride Carbon Dioxide Anion Gap BUN Creatinine Est GFR (CKD-EPI)AfAm Est GFR (CKD-EPI)NonAf POC Glucometer 130 Random Glucose Calcium Total Bilirubin AST ALT Alkaline Phosphatase Total Protein Albumin RPR Titer Labs reviewed: hyperglycemia r/t DM (on med) Assessment: 05/19/19 13:58 Withdrawal sxs Plan: Continue detox Encourage PO water intake HTN: continue present regimen, adjust medication if warranted DM with hyperglycemia: continue to monitor FS glucose, send A1c, consider initiating oral antidiabetic or follow up with PCP for management
[2019-05-19] MEDS: THIAMINE HCL 100 MG TABLET (FP) PO SCH (23:17)
[2019-05-19] MEDS: MELATONIN 5 MG TABLETS PO PRN (23:18)
[2019-05-19] MEDS: ATORVASTATIN CA 20 MG TABLET (FP) PO SCH (23:20)
[2019-05-20] MEDS: chlordiazePOXIDE HCL 10 MG CAPSULE PO SCH ×2 (07:41→17:34)
[2019-05-20] MEDS: amLODIPine BESYLATE 5 MG TABLET (FP) PO SCH (11:15)
[2019-05-20] MEDS: PRENATAL VITAMINS W/ FOLIC ACID TABLET (FP) PO SCH (11:15)
[2019-05-20] MEDS: LIDOCAINE 5% TOPICAL PATCH TP SCH (11:16)
--- NOTE | 2019-05-20 16:22 | PN ---
S CIWA - CIWA Score Nausea/Vomitin-No Nausea/No Vomiting Muscle Tremors: None Anxiety: 4-Mod. Anxious/Guarded Agitation: 0-Normal Activity Paroxysmal Sweats: No Perspiration Orientation: 2-Disoriented Date<2 days Tacttile Disturbances: 1-Very Mild Itch/Numbness Auditory Disturbances: 0-None Visual Disturbances: 1-Very Mild Sensitivity Headache: 0-None Present CIWA-Ar Total Score: 8 BHS Progress Note (SOAP) Subjective: Anxious. Objective: PATIENT A & O X 2 (UNCERTAIN ABOUT CURRENT DAY / DATE). PATIENT OBSERVED AMBULATING ON UNIT UNASSISTED. IN NO ACUTE DISTRESS. 05/20/19 16:19 Vital Signs Temperature 97.2 F L 05/20/19 13:58 Pulse Rate 56 L 05/20/19 13:58 Respiratory Rate 18 05/20/19 13:58 Blood Pressure 121/58 L 05/20/19 13:58 O2 Sat by Pulse Oximetry (%) Laboratory Tests 05/16/19 05/16/19 05/16/19 13:07 13:25 13:25 WBC 6.3 RBC 5.09 Hgb 14.3 Hct 44.3 MCV 87.0 MCH 28.1 MCHC 32.3 RDW 15.7 Plt Count 122 L MPV 9.7 Sodium 139 Potassium 4.7 Chloride 99 Carbon Dioxide 32 Anion Gap 9 BUN 12.9 Creatinine 1.2 Est GFR (CKD-EPI)AfAm 71.08 Est GFR (CKD-EPI)NonAf 61.33 POC Glucometer 158 Random Glucose 175 H Hemoglobin A1c % Calcium 9.3 Total Bilirubin 0.8 AST 80 H ALT 41 Alkaline Phosphatase 69 Total Protein 8.2 Albumin 3.8 RPR Titer 05/16/19 05/16/19 05/17/19 13:25 16:33 06:09 WBC RBC Hgb Hct MCV MCH MCHC RDW Plt Count MPV Sodium Potassium Chloride Carbon Dioxide Anion Gap BUN Creatinine Est GFR (CKD-EPI)AfAm Est GFR (CKD-EPI)NonAf POC Glucometer 130 96 Random Glucose Hemoglobin A1c % Calcium Total Bilirubin AST ALT Alkaline Phosphatase Total Protein Albumin RPR Titer Nonreactive 05/18/19 05/18/19 05/18/19 05:51 17:02 22:10 WBC RBC Hgb Hct MCV MCH MCHC RDW Plt Count MPV Sodium Potassium Chloride Carbon Dioxide Anion Gap BUN Creatinine Est GFR (CKD-EPI)AfAm Est GFR (CKD-EPI)NonAf POC Glucometer 108 135 163 Random Glucose Hemoglobin A1c % Calcium Total Bilirubin AST ALT Alkaline Phosphatase Total Protein Albumin RPR Titer 05/19/19 05/19/19 05/20/19 05:55 17:04 07:00 WBC RBC Hgb Hct MCV MCH MCHC RDW Plt Count MPV Sodium Potassium Chloride Carbon Dioxide Anion Gap BUN Creatinine Est GFR (CKD-EPI)AfAm Est GFR (CKD-EPI)NonAf POC Glucometer 130 174 Random Glucose Hemoglobin A1c % 6.1 Calcium Total Bilirubin AST ALT Alkaline Phosphatase Total Protein Albumin RPR Titer 05/20/19 07:35 WBC RBC Hgb Hct MCV MCH MCHC RDW Plt Count MPV Sodium Potassium Chloride Carbon Dioxide Anion Gap BUN Creatinine Est GFR (CKD-EPI)AfAm Est GFR (CKD-EPI)NonAf POC Glucometer 161 Random Glucose Hemoglobin A1c % Calcium Total Bilirubin AST ALT Alkaline Phosphatase Total Protein Albumin RPR Titer LABS NOTED. PATIENT HAS HAD ELEVATED AST LEVELS ON PREVIOUS ADMISSIONS. 05/20/19 16:19 Assessment: 05/20/19 16:21 WITHDRAWAL SYMPTOMS. ELEVATED AST LEVEL. Plan: CONTINUE DETOX. INCREASE DAILY PO WATER INTAKE. PATIENT SCHEDULED FOR DISCHARGE FROM DETOX UNIT TOMORROW.
[2019-05-20] MEDS: THIAMINE HCL 100 MG TABLET (FP) PO SCH (22:36)
[2019-05-20] MEDS: ATORVASTATIN CA 20 MG TABLET (FP) PO SCH (22:36)
[2019-05-20] MEDS: MELATONIN 5 MG TABLETS PO PRN (22:37)
[2019-05-21] MEDS ORDERED: chlordiazePOXIDE HCL 10 MG CAPSULE PO ONE (05:00)
--- NOTE | 2019-05-21 08:36 | DS ---
[facility] Detox Discharge Summary Admission Date: 05/16/19 Discharge Date: 05/21/19 - History Present History: Alcohol Dependence, Cocaine Dependence - Physical Exam Results Vital Signs: Vital Signs Temperature 96.1 F L 05/21/19 07:10 Pulse Rate 65 05/21/19 07:10 Respiratory Rate 18 05/21/19 07:10 Blood Pressure 137/91 05/21/19 07:10 O2 Sat by Pulse Oximetry (%) Pertinent Admission Physical Exam Findings: pt arrived in withdrawal Laboratory Tests 05/16/19 05/16/19 05/16/19 13:07 13:25 13:25 WBC 6.3 RBC 5.09 Hgb 14.3 Hct 44.3 MCV 87.0 MCH 28.1 MCHC 32.3 RDW 15.7 Plt Count 122 L MPV 9.7 Sodium 139 Potassium 4.7 Chloride 99 Carbon Dioxide 32 Anion Gap 9 BUN 12.9 Creatinine 1.2 Est GFR (CKD-EPI)AfAm 71.08 Est GFR (CKD-EPI)NonAf 61.33 POC Glucometer 158 Random Glucose 175 H Hemoglobin A1c % Calcium 9.3 Total Bilirubin 0.8 AST 80 H ALT 41 Alkaline Phosphatase 69 Total Protein 8.2 Albumin 3.8 RPR Titer 05/16/19 05/16/19 05/17/19 13:25 16:33 06:09 WBC RBC Hgb Hct MCV MCH MCHC RDW Plt Count MPV Sodium Potassium Chloride Carbon Dioxide Anion Gap BUN Creatinine Est GFR (CKD-EPI)AfAm Est GFR (CKD-EPI)NonAf POC Glucometer 130 96 Random Glucose Hemoglobin A1c % Calcium Total Bilirubin AST ALT Alkaline Phosphatase Total Protein Albumin RPR Titer Nonreactive 05/18/19 05/18/19 05/18/19 05:51 17:02 22:10 WBC RBC Hgb Hct MCV MCH MCHC RDW Plt Count MPV Sodium Potassium Chloride Carbon Dioxide Anion Gap BUN Creatinine Est GFR (CKD-EPI)AfAm Est GFR (CKD-EPI)NonAf POC Glucometer 108 135 163 Random Glucose Hemoglobin A1c % Calcium Total Bilirubin AST ALT Alkaline Phosphatase Total Protein Albumin RPR Titer 05/19/19 05/19/19 05/20/19 05:55 17:04 07:00 WBC RBC Hgb Hct MCV MCH MCHC RDW Plt Count MPV Sodium Potassium Chloride Carbon Dioxide Anion Gap BUN Creatinine Est GFR (CKD-EPI)AfAm Est GFR (CKD-EPI)NonAf POC Glucometer 130 174 Random Glucose Hemoglobin A1c % 6.1 Calcium Total Bilirubin AST ALT Alkaline Phosphatase Total Protein Albumin RPR Titer 05/20/19 05/21/19 07:35 06:27 WBC RBC Hgb Hct MCV MCH MCHC RDW Plt Count MPV Sodium Potassium Chloride Carbon Dioxide Anion Gap BUN Creatinine Est GFR (CKD-EPI)AfAm Est GFR (CKD-EPI)NonAf POC Glucometer 161 110 Random Glucose Hemoglobin A1c % Calcium Total Bilirubin AST ALT Alkaline Phosphatase Total Protein Albumin RPR Titer today pt is aaox3 ambulating no acute distress no s/s of withdrawal - Treatment Hospital Course: Detox Protocol Followed, Detoxed Safely, Responded well, Discharged Condition Good, Rehab Referral Accepted - Medication Discharge Medications: Ambulatory Orders Amlodipine Besylate [Norvasc -] 5 mg PO DAILY #30 tablet 11/23/15 Atorvastatin Calcium [Lipitor] 20 mg PO HS 05/16/19 Cyclobenzaprine HCl [Flexeril -] 10 mg PO BID PRN 05/16/19 Lidocaine 5% Patch [Lidoderm Patch -] 1 patch TP DAILY 05/16/19 Sitagliptin Phosphate [Januvia] 100 mg PO DAILY 05/16/19 - Diagnosis (1) Gastroesophageal reflux disease Current Visit: Yes Status: Acute (2) Diabetes Current Visit: Yes Status: Chronic Qualifiers: Diabetes mellitus type: type 2 Diabetes mellitus mcfp insulin use: unspecified mcfp insulin use status Diabetes mellitus complication status : without complication Qualified Code(s): E11.9 - Type 2 diabetes mellitus without complications (3) Elevated aspartate aminotransferase level Current Visit: Yes Status: Acute (4) Nicotine dependence Current Visit: Yes Status: Chronic Qualifiers: Nicotine product type: cigarettes Substance use status: uncomplicated Qualified Code(s): F17.210 - Nicotine dependence, cigarettes, uncomplicated (5) Alcohol dependence with uncomplicated withdrawal Current Visit: Yes Status: Chronic (6) Essential hypertension Current Visit: Yes Status: Chronic (7) History of hepatitis C Current Visit: Yes Status: Chronic (8) Alcohol-induced anxiety disorder Current Visit: No Status: Acute (9) Cocaine dependence, uncomplicated Current Visit: Yes Status: Chronic (10) Poor historian Current Visit: No Status: Acute (11) Drug-induced mood disorder Current Visit: No Status: Suspected - AMA Did Patient Leave Against Medical Advice: No
[2019-05-21] MEDS: amLODIPine BESYLATE 5 MG TABLET (FP) PO SCH (10:36)
[2019-05-21] MEDS: PRENATAL VITAMINS W/ FOLIC ACID TABLET (FP) PO SCH (10:36)
[2019-05-21] MEDS: LIDOCAINE 5% TOPICAL PATCH TP SCH (10:37)
[2019-05-21] MEDS: ATORVASTATIN CA 20 MG TABLET (FP) PO SCH (22:03)
[2019-05-21] MEDS: THIAMINE HCL 100 MG TABLET (FP) PO SCH (22:03)
[2019-05-21] MEDS: MELATONIN 5 MG TABLETS PO PRN (22:03)
[2019-05-22] MEDS: LIDOCAINE 5% TOPICAL PATCH TP SCH (10:05)
[2019-05-22] MEDS: PRENATAL VITAMINS W/ FOLIC ACID TABLET (FP) PO SCH (10:05)
[2019-05-22] MEDS: amLODIPine BESYLATE 5 MG TABLET (FP) PO SCH (10:05)
[2019-05-22] MEDS: ATORVASTATIN CA 20 MG TABLET (FP) PO SCH (22:02)
[2019-05-22] MEDS: THIAMINE HCL 100 MG TABLET (FP) PO SCH (22:02)
[2019-05-22] MEDS: MELATONIN 5 MG TABLETS PO PRN (22:02)
[2019-05-23] MEDS: LIDOCAINE 5% TOPICAL PATCH TP SCH (09:49)
[2019-05-23] MEDS: amLODIPine BESYLATE 5 MG TABLET (FP) PO SCH (09:49)
[2019-05-23] MEDS: PRENATAL VITAMINS W/ FOLIC ACID TABLET (FP) PO SCH (09:49)
[2019-05-23] MEDS: IBUPROFEN 400 MG TABLET (FP) PO PRN ×2 (09:50→21:04)
[2019-05-23] MEDS: THIAMINE HCL 100 MG TABLET (FP) PO SCH (21:03)
[2019-05-23] MEDS: ATORVASTATIN CA 20 MG TABLET (FP) PO SCH (21:03)
[2019-05-23] MEDS: MELATONIN 5 MG TABLETS PO PRN (21:04)
[2019-05-24] MEDS: LIDOCAINE 5% TOPICAL PATCH TP SCH (10:15)
[2019-05-24] MEDS: amLODIPine BESYLATE 5 MG TABLET (FP) PO SCH (10:15)
[2019-05-24] MEDS: PRENATAL VITAMINS W/ FOLIC ACID TABLET (FP) PO SCH (10:15)
[2019-05-24] MEDS: IBUPROFEN 400 MG TABLET (FP) PO PRN (10:16)
[2019-05-24] MEDS: ATORVASTATIN CA 20 MG TABLET (FP) PO SCH (21:31)
[2019-05-24] MEDS: THIAMINE HCL 100 MG TABLET (FP) PO SCH (21:31)
[2019-05-24] MEDS: MELATONIN 5 MG TABLETS PO PRN (21:32)
[2019-05-25] MEDS: LIDOCAINE 5% TOPICAL PATCH TP SCH (10:09)
[2019-05-25] MEDS: amLODIPine BESYLATE 5 MG TABLET (FP) PO SCH (10:09)
[2019-05-25] MEDS: PRENATAL VITAMINS W/ FOLIC ACID TABLET (FP) PO SCH (10:09)
--- NOTE | 2019-05-25 12:30 | PN ---
S Progress Note Note: Patient reports sleeplessness despite use of melatonin. Patient requests seroquel for sleep, reports effective in the past.Seroquel 50mg HS ordered
[2019-05-25] MEDS: THIAMINE HCL 100 MG TABLET (FP) PO SCH (21:06)
[2019-05-25] MEDS: QUEtiapine FUMARATE 50 MG TABLET PO SCH (21:06)
[2019-05-25] MEDS: ATORVASTATIN CA 20 MG TABLET (FP) PO SCH (21:06)
[2019-05-25] MEDS: IBUPROFEN 400 MG TABLET (FP) PO PRN (21:08)
[2019-05-25] MEDS: MELATONIN 5 MG TABLETS PO PRN (21:08)
[2019-05-26] MEDS: LIDOCAINE 5% TOPICAL PATCH TP SCH (09:38)
[2019-05-26] MEDS: amLODIPine BESYLATE 5 MG TABLET (FP) PO SCH (09:38)
[2019-05-26] MEDS: PRENATAL VITAMINS W/ FOLIC ACID TABLET (FP) PO SCH (09:38)
[2019-05-26] MEDS: THIAMINE HCL 100 MG TABLET (FP) PO SCH (22:04)
[2019-05-26] MEDS: ATORVASTATIN CA 20 MG TABLET (FP) PO SCH (22:04)
[2019-05-26] MEDS: MELATONIN 5 MG TABLETS PO PRN (22:04)
[2019-05-26] MEDS: QUEtiapine FUMARATE 50 MG TABLET PO SCH (22:04)
[2019-05-27] MEDS: amLODIPine BESYLATE 5 MG TABLET (FP) PO SCH (11:00)
[2019-05-27] MEDS: CYCLOBENZAPRINE HCL 10 MG TABLET (FP) PO SCH ×2 (11:00→21:37)
[2019-05-27] MEDS: LIDOCAINE 5% TOPICAL PATCH TP SCH (11:00)
[2019-05-27] MEDS: PRENATAL VITAMINS W/ FOLIC ACID TABLET (FP) PO SCH (11:00)
[2019-05-27] MEDS: ATORVASTATIN CA 20 MG TABLET (FP) PO SCH (21:37)
[2019-05-27] MEDS: QUEtiapine FUMARATE 50 MG TABLET PO SCH (21:37)
[2019-05-27] MEDS: THIAMINE HCL 100 MG TABLET (FP) PO SCH (21:37)
[2019-05-28] MEDS: PRENATAL VITAMINS W/ FOLIC ACID TABLET (FP) PO SCH (09:50)
[2019-05-28] MEDS: amLODIPine BESYLATE 5 MG TABLET (FP) PO SCH (09:50)
[2019-05-28] MEDS: CYCLOBENZAPRINE HCL 10 MG TABLET (FP) PO SCH ×2 (09:50→21:11)
[2019-05-28] MEDS: LIDOCAINE 5% TOPICAL PATCH TP SCH (09:50)
[2019-05-28] MEDS: QUEtiapine FUMARATE 50 MG TABLET PO SCH (21:11)
[2019-05-28] MEDS: THIAMINE HCL 100 MG TABLET (FP) PO SCH (21:11)
[2019-05-28] MEDS: ATORVASTATIN CA 20 MG TABLET (FP) PO SCH (21:11)
[2019-05-28] MEDS: MELATONIN 5 MG TABLETS PO PRN (21:12)
[2019-05-29] MEDS: amLODIPine BESYLATE 5 MG TABLET (FP) PO SCH (10:11)
[2019-05-29] MEDS: PRENATAL VITAMINS W/ FOLIC ACID TABLET (FP) PO SCH (10:11)
[2019-05-29] MEDS: CYCLOBENZAPRINE HCL 10 MG TABLET (FP) PO SCH ×2 (10:11→21:30)
[2019-05-29] MEDS: LIDOCAINE 5% TOPICAL PATCH TP SCH (10:11)
[2019-05-29] MEDS: MELATONIN 5 MG TABLETS PO PRN (21:30)
[2019-05-29] MEDS: ATORVASTATIN CA 20 MG TABLET (FP) PO SCH (21:30)
[2019-05-29] MEDS: QUEtiapine FUMARATE 50 MG TABLET PO SCH (21:30)
[2019-05-29] MEDS: THIAMINE HCL 100 MG TABLET (FP) PO SCH (21:30)
[2019-05-30] MEDS: CYCLOBENZAPRINE HCL 10 MG TABLET (FP) PO SCH ×2 (09:46→21:58)
[2019-05-30] MEDS: LIDOCAINE 5% TOPICAL PATCH TP SCH (09:47)
[2019-05-30] MEDS: PRENATAL VITAMINS W/ FOLIC ACID TABLET (FP) PO SCH (09:47)
[2019-05-30] MEDS: amLODIPine BESYLATE 5 MG TABLET (FP) PO SCH (09:47)
[2019-05-30] MEDS: MELATONIN 5 MG TABLETS PO PRN (21:58)
[2019-05-30] MEDS: THIAMINE HCL 100 MG TABLET (FP) PO SCH (21:58)
[2019-05-30] MEDS: ATORVASTATIN CA 20 MG TABLET (FP) PO SCH (21:58)
[2019-05-30] MEDS: QUEtiapine FUMARATE 50 MG TABLET PO SCH (21:59)
[2019-05-31] MEDS: CYCLOBENZAPRINE HCL 10 MG TABLET (FP) PO SCH ×2 (09:50→21:03)
[2019-05-31] MEDS: PRENATAL VITAMINS W/ FOLIC ACID TABLET (FP) PO SCH (09:50)
[2019-05-31] MEDS: amLODIPine BESYLATE 5 MG TABLET (FP) PO SCH (09:50)
[2019-05-31] MEDS: LIDOCAINE 5% TOPICAL PATCH TP SCH (09:50)
[2019-05-31] MEDS: THIAMINE HCL 100 MG TABLET (FP) PO SCH (21:03)
[2019-05-31] MEDS: QUEtiapine FUMARATE 50 MG TABLET PO SCH (21:03)
[2019-05-31] MEDS: ATORVASTATIN CA 20 MG TABLET (FP) PO SCH (21:03)
[2019-05-31] MEDS: MELATONIN 5 MG TABLETS PO PRN (21:04)
[2019-06-01] MEDS: LIDOCAINE 5% TOPICAL PATCH TP SCH (11:04)
[2019-06-01] MEDS: PRENATAL VITAMINS W/ FOLIC ACID TABLET (FP) PO SCH (11:04)
[2019-06-01] MEDS: CYCLOBENZAPRINE HCL 10 MG TABLET (FP) PO SCH ×2 (11:04→21:09)
[2019-06-01] MEDS: amLODIPine BESYLATE 5 MG TABLET (FP) PO SCH (11:04)
[2019-06-01] MEDS: MELATONIN 5 MG TABLETS PO PRN (21:09)
[2019-06-01] MEDS: ATORVASTATIN CA 20 MG TABLET (FP) PO SCH (21:09)
[2019-06-01] MEDS: QUEtiapine FUMARATE 50 MG TABLET PO SCH (21:09)
[2019-06-01] MEDS: THIAMINE HCL 100 MG TABLET (FP) PO SCH (21:09)
[2019-06-02] MEDS: PRENATAL VITAMINS W/ FOLIC ACID TABLET (FP) PO SCH (09:56)
[2019-06-02] MEDS: CYCLOBENZAPRINE HCL 10 MG TABLET (FP) PO SCH ×2 (09:56→21:49)
[2019-06-02] MEDS: amLODIPine BESYLATE 5 MG TABLET (FP) PO SCH (09:56)
[2019-06-02] MEDS: LIDOCAINE 5% TOPICAL PATCH TP SCH (09:56)
[2019-06-02] MEDS: THIAMINE HCL 100 MG TABLET (FP) PO SCH (21:49)
[2019-06-02] MEDS: ATORVASTATIN CA 20 MG TABLET (FP) PO SCH (21:49)
[2019-06-02] MEDS: MELATONIN 5 MG TABLETS PO PRN (21:49)
[2019-06-02] MEDS: QUEtiapine FUMARATE 50 MG TABLET PO SCH (21:49)
[2019-06-03] MEDS: amLODIPine BESYLATE 5 MG TABLET (FP) PO SCH (11:10)
[2019-06-03] MEDS: LIDOCAINE 5% TOPICAL PATCH TP SCH (11:10)
[2019-06-03] MEDS: PRENATAL VITAMINS W/ FOLIC ACID TABLET (FP) PO SCH (11:10)
[2019-06-03] MEDS: CYCLOBENZAPRINE HCL 10 MG TABLET (FP) PO SCH ×2 (11:10→21:57)
[2019-06-03] MEDS: ATORVASTATIN CA 20 MG TABLET (FP) PO SCH (21:57)
[2019-06-03] MEDS: THIAMINE HCL 100 MG TABLET (FP) PO SCH (21:57)
[2019-06-03] MEDS: QUEtiapine FUMARATE 50 MG TABLET PO SCH (21:57)
[2019-06-04] MEDS: amLODIPine BESYLATE 5 MG TABLET (FP) PO SCH (09:30)
[2019-06-04] MEDS: LIDOCAINE 5% TOPICAL PATCH TP SCH (09:30)
[2019-06-04] MEDS: CYCLOBENZAPRINE HCL 10 MG TABLET (FP) PO SCH ×2 (09:30→21:02)
[2019-06-04] MEDS: PRENATAL VITAMINS W/ FOLIC ACID TABLET (FP) PO SCH (09:30)
[2019-06-04] MEDS: THIAMINE HCL 100 MG TABLET (FP) PO SCH (21:02)
[2019-06-04] MEDS: ATORVASTATIN CA 20 MG TABLET (FP) PO SCH (21:02)
[2019-06-04] MEDS: QUEtiapine FUMARATE 50 MG TABLET PO SCH (21:02)
[2019-06-05] MEDS: amLODIPine BESYLATE 5 MG TABLET (FP) PO SCH (10:00)
[2019-06-05] MEDS: PRENATAL VITAMINS W/ FOLIC ACID TABLET (FP) PO SCH (10:00)
[2019-06-05] MEDS: LIDOCAINE 5% TOPICAL PATCH TP SCH (10:00)
[2019-06-05] MEDS: CYCLOBENZAPRINE HCL 10 MG TABLET (FP) PO SCH ×2 (10:00→21:53)
[2019-06-05] MEDS: QUEtiapine FUMARATE 50 MG TABLET PO SCH (21:53)
[2019-06-05] MEDS: ATORVASTATIN CA 20 MG TABLET (FP) PO SCH (21:53)
[2019-06-05] MEDS: THIAMINE HCL 100 MG TABLET (FP) PO SCH (21:53)
[2019-06-05] MEDS: MELATONIN 5 MG TABLETS PO PRN (21:53)
[2019-06-06] MEDS ORDERED: PT OWN MED DRAWER 7, Y5N ONE (09:18)
[2019-06-06] MEDS: amLODIPine BESYLATE 5 MG TABLET (FP) PO SCH (10:18)
[2019-06-06] MEDS: CYCLOBENZAPRINE HCL 10 MG TABLET (FP) PO SCH ×2 (10:18→21:04)
[2019-06-06] MEDS: PRENATAL VITAMINS W/ FOLIC ACID TABLET (FP) PO SCH (10:18)
[2019-06-06] MEDS: LIDOCAINE 5% TOPICAL PATCH TP SCH (10:18)
--- NOTE | 2019-06-06 17:50 | PN ---
S Progress Note Note: Patient is scheduled for discharge tomorrow. Script for 30 days supply of Seroquel 50 mg/hs will be electronically transmitted to [facility] at [address] [place] [address]
[2019-06-06] MEDS: THIAMINE HCL 100 MG TABLET (FP) PO SCH (21:04)
[2019-06-06] MEDS: ATORVASTATIN CA 20 MG TABLET (FP) PO SCH (21:04)
[2019-06-06] MEDS: QUEtiapine FUMARATE 50 MG TABLET PO SCH (21:04)
[2019-06-07 07:10] VITALS: BP 145/82; PULSE 64; TEMP 97.8
--- NOTE | 2019-06-07 10:39 | DS ---
[facility] Rehab Discharge Summary - [facility] Rehab Discharge Summary Admission Date: 05/16/19 Discharge Date: 06/07/19 - History Present History: Alcohol dependence, Cocaine dependence - Discharge Physical Exam Vital Signs: Vital Signs Temperature 97.8 F 06/07/19 07:10 Pulse Rate 64 06/07/19 07:10 Respiratory Rate 18 06/07/19 07:10 Blood Pressure 145/82 06/07/19 07:10 O2 Sat by Pulse Oximetry (%) Pertinent Admission Physical Exam Findings: PE ALERT AND ORIENTED X 3 SKIN WARM AND DRY CAR S1S2 RESP CTA BL EXT FULL ROM, NO EDEMA, NO TREMORS AMB AD MILLI - Treatment Discharge Condition: Discharge condition good Hospital Course: PATIENT COMPLETED REHAB FOR ETOH AND COCAINE DEPENDENCE AND REPORTS ACCOMPLISHING ALL GOALS. PATIENT SEEN BY PSYCHIATRY AND TREATED FOR INSOMNIA DURING HOSPITAL ADMISSION. PATIENT IS MOTIVATED TO MAINTAIN SOBRIETY, IS MEDICALLY STABLE AND DENIES SI/HI AT THIS TIME. - Medication Discharge Medications: Ambulatory Orders Cyclobenzaprine HCl [Flexeril -] 10 mg PO BID PRN 05/16/19 Lidocaine 5% Patch [Lidoderm Patch -] 1 patch TP DAILY 05/16/19 Quetiapine Fumarate [Seroquel -] 50 mg PO HS #30 tablet 06/06/19 Amlodipine Besylate [Norvasc -] 5 mg PO DAILY #30 tablet 06/07/19 Atorvastatin Calcium [Lipitor] 20 mg PO HS #30 tablet 06/07/19 Sitagliptin Phosphate [Januvia] 100 mg PO DAILY #30 tablet 06/07/19 - Medication-Assisted Treatment (MAT) Medication-Assisted Treatment (MAT): No MAT Follow-up Referral: PATIENT NOT ON MAT. AFTERCARE ARRANGED FOR NEXT STEP ON 06/11/19 AT 10AM. - Discharge Instructions Diet, activity, other medical instructions: Diet: Activity: Other medical instructions: - Diagnosis (1) Alcohol dependence Status: Chronic Qualifiers: Substance use status: uncomplicated Qualified Code(s): F10.20 - Alcohol dependence, uncomplicated (2) Cocaine dependence, uncomplicated Status: Chronic (3) Diabetes Status: Chronic Qualifiers: Diabetes mellitus type: type 2 Diabetes mellitus nursing home insulin use: unspecified nursing home insulin use status Diabetes mellitus complication status : without complication Qualified Code(s): E11.9 - Type 2 diabetes mellitus without complications (4) Essential hypertension Status: Chronic (5) History of hepatitis C Status: Chronic (6) Nicotine dependence Status: Chronic Qualifiers: Nicotine product type: cigarettes Substance use status: uncomplicated Qualified Code(s): F17.210 - Nicotine dependence, cigarettes, uncomplicated - Follow-up Referral Minutes to complete discharge: 30 - AMA Did Patient Leave Against Medical Advice: No
== END 2019-06-07 09:00 | disposition home or self-care (01) | DRG 895 ==
LOC: YASAS 10:58 → Y6N 13:07 → Y3W 05-21 13:32
PROVIDERS: ADMIT Neuromusculoskeletal Medicine & OMM; ATTEND Neuromusculoskeletal Medicine & OMM
PROC: HZ42ZZZ Group Counseling for Substance Abuse Treatment, Cognitive-Behavioral (ICD-10-PCS; principal; 2019-05-16)
DX: F10.20 Alcohol dependence, uncomplicated (principal); Z68.1 Body mass index [BMI] 19.9 or less, adult; F14.10 Cocaine abuse, uncomplicated; F17.210 Nicotine dependence, cigarettes, uncomplicated; F10.280 Alcohol dependence with alcohol-induced anxiety disorder; F19.24 Other psychoactive substance dependence with psychoactive substance-induced mood disorder; E86.0 Dehydration; E11.9 Type 2 diabetes mellitus without complications; Z79.4 Long term (current) use of insulin; I10 Essential (primary) hypertension; R94.5 Abnormal results of liver function studies; R63.4 Abnormal weight loss; Z86.19 Personal history of other infectious and parasitic diseases
CPT/HCPCS: 36415; 80053; 82962; 83036; 85027; 86593; 93005; 93010

== ENCOUNTER 2020-09-25 12:40 | Inpatient (IN) | payer OTHER ==
[2020-09-25 13:36] VITALS: BMI 22.4
[2020-09-25] MEDS ORDERED: IBUPROFEN 400 MG TABLET (FP) PO PRN (17:42)
[2020-09-25] MEDS ORDERED: MAG HYDROX/AL HYDROX/SIMETH 30 ML UNIT-DOSE CUP PO PRN (17:42)
[2020-09-25] MEDS ORDERED: MAGNESIUM HYDROX 2400MG/30ML ORAL SUSPENSION 30 ML CUP PO PRN (17:42)
[2020-09-25] MEDS ORDERED: hydrOXYzine PAMOATE 25 MG CAPSULE (FP) PO PRN (17:42)
[2020-09-25] MEDS ORDERED: LOPERAMIDE HCL 2 MG CAPSULE PO PRN (17:42)
[2020-09-25] MEDS ORDERED: P-EPHED 60MG/TRIPROLIDI 2.5MG TABLET PO PRN (17:42)
[2020-09-25] MEDS ORDERED: MAGNESIUM CITRATE 300 ML BOTTLE PO PRN (17:42)
[2020-09-25] MEDS ORDERED: guaiFENesin 200 MG/10 ML 10 ML UNIT-DOSE CUPS PO PRN (17:42)
[2020-09-25] MEDS ORDERED: NICOTINE POLACRILEX 2 MG GUM BC PRN (17:42)
[2020-09-25] MEDS ORDERED: ACETAMINOPHEN 325 MG TABLET (FP) PO PRN (17:42)
[2020-09-25] MEDS: THIAMINE HCL 100 MG TABLET (FP) PO SCH (21:35)
[2020-09-25] MEDS: MELATONIN 5 MG TABLETS PO SCH (21:35)
[2020-09-26] MEDS: NICOTINE 14 MG/24 HOURS TOPICAL PATCH TD SCH (10:30)
[2020-09-26] MEDS: PRENATAL VITAMINS W/ FOLIC ACID TABLET (FP) PO SCH (10:30)
[2020-09-26 11:52] LABS: HEMATOCRIT 46.4 % (35.4-49); HEMOGLOBIN 14.8 GM/dL (11.7-16.9); MCH 28.1 pg (25.7-33.7); MCHC 31.8 g/dl (32.0-35.9); MEAN CELL VOLUME 88.2 fl (80-96); MEAN PLT VOLUME 10.2 fl (7.5-11.1); PLATELET COUNT 107 K/MM3 (134-434); RBC 5.26 M/mm3 (4.00-5.60); RDW 15.4 % (11.9-15.9); WHITE BLOOD COUNT 5.5 K/mm3 (4.0-10.0)
[2020-09-26 11:53] LABS: PH,URINE 5.5 (5.0-8.0); URINE APPEARANCE CLEAR; URINE BILIRUBIN NEGATIVE (NEGATIVE); URINE COLOR YELLOW; URINE GLUCOSE (UA) NEGATIVE (NEGATIVE); URINE KETONE NEGATIVE (NEGATIVE); URINE LEUK ESTERASE NEGATIVE (NEGATIVE); URINE NITRITE NEGATIVE (NEGATIVE); URINE PROTEIN NEGATIVE (NEGATIVE); URINE UROBILINOGEN 0.2 mg/dL (0.2-1.0)
[2020-09-26 12:03] LABS: CALCIUM 9.3 mg/dL (8.5-10.1)
[2020-09-26 12:04] LABS: ALBUMIN 3.8 g/dl (3.4-5.0); BLOOD UREA NITROGEN 14.6 mg/dL (7-18)
[2020-09-26 12:07] LABS: CREATININE 1.1 mg/dL (0.55-1.3)
[2020-09-26 12:08] LABS: BILIRUBIN,TOTAL 0.5 mg/dL (0.2-1); TOT PROT 8.5 g/dl (6.4-8.2)
[2020-09-26] MEDS: THIAMINE HCL 100 MG TABLET (FP) PO SCH (21:40)
[2020-09-26] MEDS: MELATONIN 5 MG TABLETS PO SCH (21:40)
[2020-09-27] MEDS: PRENATAL VITAMINS W/ FOLIC ACID TABLET (FP) PO SCH (10:23)
[2020-09-27] MEDS: NICOTINE 14 MG/24 HOURS TOPICAL PATCH TD SCH (10:23)
[2020-09-27] MEDS: ATORVASTATIN CA 20 MG TABLET (FP) PO SCH (21:14)
[2020-09-27] MEDS: THIAMINE HCL 100 MG TABLET (FP) PO SCH (21:14)
[2020-09-27] MEDS: MELATONIN 5 MG TABLETS PO SCH (21:14)
[2020-09-28] MEDS: amLODIPine BESYLATE 5 MG TABLET (FP) PO SCH (09:42)
[2020-09-28] MEDS: NICOTINE 14 MG/24 HOURS TOPICAL PATCH TD SCH (09:42)
[2020-09-28] MEDS: PRENATAL VITAMINS W/ FOLIC ACID TABLET (FP) PO SCH (09:42)
[2020-09-28] MEDS: THIAMINE HCL 100 MG TABLET (FP) PO SCH (21:27)
[2020-09-28] MEDS: MELATONIN 5 MG TABLETS PO SCH (21:27)
[2020-09-28] MEDS: ATORVASTATIN CA 20 MG TABLET (FP) PO SCH (21:27)
[2020-09-29] MEDS: PRENATAL VITAMINS W/ FOLIC ACID TABLET (FP) PO SCH (09:34)
[2020-09-29] MEDS: amLODIPine BESYLATE 5 MG TABLET (FP) PO SCH (09:34)
[2020-09-29] MEDS: NICOTINE 14 MG/24 HOURS TOPICAL PATCH TD SCH (09:34)
[2020-09-29] MEDS: THIAMINE HCL 100 MG TABLET (FP) PO SCH (21:13)
[2020-09-29] MEDS: ATORVASTATIN CA 20 MG TABLET (FP) PO SCH (21:13)
[2020-09-29] MEDS: MELATONIN 5 MG TABLETS PO SCH (21:13)
[2020-09-30] MEDS: PRENATAL VITAMINS W/ FOLIC ACID TABLET (FP) PO SCH (09:52)
[2020-09-30] MEDS: amLODIPine BESYLATE 5 MG TABLET (FP) PO SCH (09:52)
[2020-09-30] MEDS: NICOTINE 14 MG/24 HOURS TOPICAL PATCH TD SCH (09:53)
[2020-09-30] MEDS: MELATONIN 5 MG TABLETS PO SCH (21:28)
[2020-09-30] MEDS: ATORVASTATIN CA 20 MG TABLET (FP) PO SCH (21:28)
[2020-09-30] MEDS: THIAMINE HCL 100 MG TABLET (FP) PO SCH (21:28)
[2020-09-30] MEDS ORDERED: SUVOREXANT 10 MG TABLET PO PRN (22:00)
[2020-10-01] MEDS: PRENATAL VITAMINS W/ FOLIC ACID TABLET (FP) PO SCH (09:56)
[2020-10-01] MEDS: NICOTINE 14 MG/24 HOURS TOPICAL PATCH TD SCH (09:56)
[2020-10-01] MEDS: amLODIPine BESYLATE 5 MG TABLET (FP) PO SCH (09:56)
[2020-10-01] MEDS: THIAMINE HCL 100 MG TABLET (FP) PO SCH (21:15)
[2020-10-01] MEDS: MELATONIN 5 MG TABLETS PO SCH (21:15)
[2020-10-01] MEDS: SUVOREXANT 15 MG TABLET PO PRN (21:16)
[2020-10-01] MEDS: ATORVASTATIN CA 20 MG TABLET (FP) PO SCH (21:16)
[2020-10-02] MEDS: PRENATAL VITAMINS W/ FOLIC ACID TABLET (FP) PO SCH (09:48)
[2020-10-02] MEDS: NICOTINE 14 MG/24 HOURS TOPICAL PATCH TD SCH (09:48)
[2020-10-02] MEDS: amLODIPine BESYLATE 5 MG TABLET (FP) PO SCH (09:49)
[2020-10-02] MEDS: ATORVASTATIN CA 20 MG TABLET (FP) PO SCH (21:08)
[2020-10-02] MEDS: THIAMINE HCL 100 MG TABLET (FP) PO SCH (21:08)
[2020-10-02] MEDS: MELATONIN 5 MG TABLETS PO SCH (21:08)
[2020-10-02] MEDS: SUVOREXANT 15 MG TABLET PO PRN (21:09)
[2020-10-03] MEDS: PRENATAL VITAMINS W/ FOLIC ACID TABLET (FP) PO SCH (10:41)
[2020-10-03] MEDS: amLODIPine BESYLATE 5 MG TABLET (FP) PO SCH (10:41)
[2020-10-03] MEDS: NICOTINE 14 MG/24 HOURS TOPICAL PATCH TD SCH (10:41)
[2020-10-03] MEDS ORDERED: PT OWN MED DRAWER 7, Y5N ONE (14:06)
[2020-10-03] MEDS: THIAMINE HCL 100 MG TABLET (FP) PO SCH (21:32)
[2020-10-03] MEDS: ATORVASTATIN CA 20 MG TABLET (FP) PO SCH (21:32)
[2020-10-03] MEDS: MELATONIN 5 MG TABLETS PO SCH (21:32)
[2020-10-03] MEDS: SUVOREXANT 15 MG TABLET PO PRN (21:33)
[2020-10-04] MEDS: amLODIPine BESYLATE 5 MG TABLET (FP) PO SCH (09:49)
[2020-10-04] MEDS: PRENATAL VITAMINS W/ FOLIC ACID TABLET (FP) PO SCH (09:49)
[2020-10-04] MEDS: NICOTINE 14 MG/24 HOURS TOPICAL PATCH TD SCH (09:50)
[2020-10-04] MEDS ORDERED: SUVOREXANT 10 MG TABLET PO PRN (22:00)
[2020-10-04] MEDS: ATORVASTATIN CA 20 MG TABLET (FP) PO SCH (22:42)
[2020-10-04] MEDS: SUVOREXANT 15 MG TABLET PO PRN (22:42)
[2020-10-04] MEDS: THIAMINE HCL 100 MG TABLET (FP) PO SCH (22:42)
[2020-10-04] MEDS: MELATONIN 5 MG TABLETS PO SCH (22:42)
[2020-10-05] MEDS: amLODIPine BESYLATE 5 MG TABLET (FP) PO SCH (11:11)
[2020-10-05] MEDS: NICOTINE 14 MG/24 HOURS TOPICAL PATCH TD SCH (11:11)
[2020-10-05] MEDS: PRENATAL VITAMINS W/ FOLIC ACID TABLET (FP) PO SCH (11:11)
[2020-10-05] MEDS ORDERED: PT OWN MED DRAWER 7, Y5N ONE (14:10)
[2020-10-05] MEDS: MELATONIN 5 MG TABLETS PO SCH (21:23)
[2020-10-05] MEDS: THIAMINE HCL 100 MG TABLET (FP) PO SCH (21:23)
[2020-10-05] MEDS: ATORVASTATIN CA 20 MG TABLET (FP) PO SCH (21:23)
[2020-10-05] MEDS: SUVOREXANT 15 MG TABLET PO PRN (21:23)
[2020-10-06] MEDS: PRENATAL VITAMINS W/ FOLIC ACID TABLET (FP) PO SCH (09:41)
[2020-10-06] MEDS: amLODIPine BESYLATE 5 MG TABLET (FP) PO SCH (09:41)
[2020-10-06] MEDS: NICOTINE 14 MG/24 HOURS TOPICAL PATCH TD SCH (09:42)
[2020-10-06] MEDS: THIAMINE HCL 100 MG TABLET (FP) PO SCH (21:14)
[2020-10-06] MEDS: ATORVASTATIN CA 20 MG TABLET (FP) PO SCH (21:14)
[2020-10-06] MEDS: MELATONIN 5 MG TABLETS PO SCH (21:14)
[2020-10-07 06:55] VITALS: BP 156/80; PULSE 63; TEMP 97.5
[2020-10-07] MEDS: amLODIPine BESYLATE 5 MG TABLET (FP) PO SCH (09:00)
[2020-10-07] MEDS: PRENATAL VITAMINS W/ FOLIC ACID TABLET (FP) PO SCH (09:00)
[2020-10-07] MEDS: NICOTINE 14 MG/24 HOURS TOPICAL PATCH TD SCH (10:10)
== END 2020-10-07 09:50 | disposition home or self-care (01) | DRG 895 ==
LOC: YASAS 12:40 → Y3W 18:09
PROVIDERS: ADMIT Allergy & Immunology; ATTEND Allergy & Immunology
PROC: HZ42ZZZ Group Counseling for Substance Abuse Treatment, Cognitive-Behavioral (ICD-10-PCS; principal; 2020-09-25)
DX: F10.20 Alcohol dependence, uncomplicated (principal); F14.20 Cocaine dependence, uncomplicated; F19.282 Other psychoactive substance dependence with psychoactive substance-induced sleep disorder; F12.10 Cannabis abuse, uncomplicated; F17.210 Nicotine dependence, cigarettes, uncomplicated; I10 Essential (primary) hypertension; E78.5 Hyperlipidemia, unspecified; E11.9 Type 2 diabetes mellitus without complications; B18.2 Chronic viral hepatitis C
CPT/HCPCS: 36415; 80053; 81003; 82962; 85027; 93005; 93010; C9803; U0003